=== PATIENT | male | born 1975 | race Caucasian/White ===

== ENCOUNTER 2020-03-24 17:55 | Emergency (ER) | payer MEDICAID ==
[2020-03-24] MEDS ORDERED: Adacel Vial IM ONE ×2 (18:10→18:13)
[2020-03-24] MEDS ORDERED: Hydromorphone 1 mg/ml Ampule ONE (18:13)
[2020-03-24] MEDS ORDERED: Hydromorphone 1 mg/ml Ampule IV ONE (18:18)
[2020-03-24] MEDS ORDERED: Sodium Chloride 0.9% 1000 ML 1,000 ML IV STA ×2 (18:22→18:25)
[2020-03-24] MEDS ORDERED: Sodium Chloride 0.9% 1000 ML 1,000 ML ONE ×2 (18:23→18:50)
--- NOTE | 2020-03-24 18:24 | ERPHSYRPT ---
- History of Present Illness Time Seen by Provider: 03/24/20 18:19 Source: patient, family, EMS Exam Limitations: no limitations Patient Subjective Stated Complaint: pt's circular kicked back and fell on pts right foot, pt has approx 1.5 cm laceration to top of right foot. ems states pt lost about a liter of blood. tournquit was placed on lower foot. dressing applied per ems . pt was given zofran and pain meds. Triage Nursing Assessment: pt arrived per ambulance. alert, resp easy, skin w/d/p. pt tournquit taken off and pt has steady oozing f blood, pressure dressing applied. eat 2 hours ago Physician History: pt dropped running circ saw on right foot and has bleeding stopped by tournequet. Pod Dr. Tiwari contacted adn will take to OR to explore and tie off bleeding vessel and treat wound. no other complaint of injury. Method of Injury: incised Occurred: just prior to arrival Quality: constant, stabbing Severity of Pain-Max: moderate Severity of Pain-Current: moderate Lower Extremities Pain: foot: right Modifying Factors: Improves With: nothing Associated Symptoms: other (bleeding) Allergies/Adverse Reactions: codeine Allergy (Verified 03/24/20 18:12) Penicillins Allergy (Verified 03/24/20 18:12) Home Medications: PARoxetine HCL [Paroxetine HCl] 20 mg DAILY 03/24/20 [History] Hx Tetanus, Diphtheria Vaccination/Date Given: No Hx Influenza Vaccination/Date Given: No Hx Pneumococcal Vaccination/Date Given: No Immunizations Up to Date: Yes Travel Risk - International Travel Have you traveled outside of the country in past 3 weeks: No - Coronavirus Screening Are you exhibiting any of the following symptoms?: No Close contact with a COVID-19 positive Pt in past 14-21 Days: No - Review of Systems Constitutional: No Fever, No Chills Eyes: No Symptoms Ears, Nose, & Throat: No Symptoms Respiratory: No Cough, No Dyspnea Cardiac: No Chest Pain, No Edema, No Syncope Abdominal/Gastrointestinal: No Abdominal Pain, No Nausea, No Vomiting, No Diar gregorio Genitourinary Symptoms: No Dysuria Musculoskeletal: Other (lac right foot), No Back Pain, No Neck Pain Skin: Other (lac), No Rash Neurological: No Dizziness, No Focal Weakness, No Sensory Changes Psychological: No Symptoms Endocrine: No Symptoms All Other Systems: Reviewed and Negative - Past Medical History Pertinent Past Medical History: Yes GI Medical History: GERD Psycho-Social History: Other Other Medical History: PTSD - Past Surgical History Past Surgical History: Yes Musculoskeletal: Orthopedic Surgery - Social History Smoking Status: Never smoker Exposure to second hand smoke: No Drug Use: none Patient Lives Alone: No - Nursing Vital Signs Nursing Vital Signs: Initial Vital Signs Temperature 97.7 F 03/24/20 17:58 Pulse Rate 78 03/24/20 17:58 Respiratory Rate 16 03/24/20 17:58 Blood Pressure 116/76 03/24/20 17:58 O2 Sat by Pulse Oximetry 97 03/24/20 17:58 Pain Scale Pain Intensity 4 - Physical Exam General Appearance: no apparent distress, alert Eyes, Ears, Nose, Throat Exam: moist mucous membranes Neck Exam: non-tender, supple Cardiovascular/Respiratory Exam: chest non-tender, normal breath sounds, regular rate/rhythm, no respiratory distress Gastrointestinal/Abdominal Exam: non-tender, guarding Back Exam: normal inspection, No vertebral tenderness Hips Exam: bilateral: non-tender, normal inspection, normal range of motion, no evidence of injury Legs Exam: bilateral leg: non-tender, normal inspection, normal range of motion, no evidence of injury Knees Exam: bilateral knee: non-tender, normal inspection, normal range of motion, no evidence of injury Ankle Exam: bilateral ankle: non-tender, normal inspection, normal range of motion, no evidence of injury Foot Exam: right foot: abrasions/lacerations, pain, left foot: non-tender, normal inspection, normal range of motion, no evidence of injury DTR - Lower Extremities Exam: knee (R): 2+, knee (L): 2+, ankle (R): 2+, ankle (L): 2+ Neuro/Tendon Exam: normal sensation, normal motor functions Mental Status Exam: alert, oriented x 3, cooperative Skin Exam: normal color, warm, dry, laceration SpO2 Interpretation: normal - Course Nursing assessment & vital signs reviewed: Yes - Radiology Exams Right Foot X-ray Interpretation: Reviewed by me, Other (no obvious fracture) Ordered Tests: Active Orders 24 hr Category Date Time Status Cotton Bag Clipper STAT Care 03/24/20 18:19 Active IV Insertion STAT Care 03/24/20 18:12 Active IV Insertion-2nd Peripheral STAT Care 03/24/20 18:12 Active FOOT (MINIMUM 3 VIEWS) Stat Exams 03/24/20 18:09 Taken CBC W DIFF Stat Lab 03/24/20 18:23 Completed CMP Stat Lab 03/24/20 18:23 Completed PROTIME WITH INR Stat Lab 03/24/20 18:23 Completed PTT Stat Lab 03/24/20 18:23 Completed Medication Summary Generic Name Dose Route Start Last Admin Trade Name Freq PRN Reason Stop Dose Admin Sodium Chloride 1,000 mls @ 999 mls/hr 03/24/20 18:22 03/24/20 18:24 Sodium Chloride 0.9% 1000 Ml IV 03/24/20 19:22 999 mls/hr .Q1H1M STA Administration Sodium Chloride 1,000 mls @ 999 mls/hr 03/24/20 18:25 Sodium Chloride 0.9% 1000 Ml IV 03/24/20 19:25 .Q1H1M STA Discontinued Medications Generic Name Dose Route Start Last Admin Trade Name Freq PRN Reason Stop Dose Admin Diphtheria/Tetanus/Acell Pertussis 0.5 ml 03/24/20 18:10 03/24/20 18:16 Adacel Vial IM 03/24/20 18:11 0.5 ml .ONCE ONE Administration Diphtheria/Tetanus/Acell Pertussis Confirm 03/24/20 18:13 Adacel Vial Administered 03/24/20 18:14 Dose 0.5 ml IM .STK-MED ONE Hydromorphone HCl Confirm 03/24/20 18:13 Hydromorphone 1 Mg/Ml Ampule Administered 03/24/20 18:14 Dose 1 mg .ROUTE .STK-MED ONE Hydromorphone HCl 1 mg 03/24/20 18:18 03/24/20 18:18 Hydromorphone 1 Mg/Ml Ampule IV 03/24/20 18:19 1 mg STAT ONE Administration Sodium Chloride Confirm 03/24/20 18:23 Sodium Chloride 0.9% 1000 Ml Administered 03/24/20 18:24 Dose 1,000 mls @ ud .ROUTE .STK-MED ONE Lab/Rad Data: Laboratory Result Diagrams 03/24/20 18:23 03/24/20 18:23 Laboratory Results 03/24/20 03/24/20 03/24/20 Range/Units 18:23 18:23 18:23 WBC 11.9 H (4.0-10.5) K/mm3 RBC 4.54 (4.1-5.6) M/mm3 Hgb 13.8 (12.5-18.0) gm/dl Hct 40.9 L (42-50) % MCV 90.1 (78-100) fl MCH 30.4 (26-32) pg MCHC 33.7 (32-36) g/dl RDW 12.4 (11.5-14.0) % Plt Count 218 (150-450) K/mm3 MPV 9.8 (7.5-11.0) fl Gran % 60.5 (36.0-66.0) % Eos # (Auto) 0.22 (0-0.5) Absolute Lymphs (auto) 3.61 (1.0-4.6) Absolute Monos (auto) 0.81 (0.0-1.3) Lymphocytes % 30.5 (24.0-44.0) % Monocytes % 6.8 (0.0-12.0) % Eosinophils % 1.9 (0.00-5.0) % Basophils % 0.3 (0.0-0.4) % Absolute Granulocytes 7.18 H (1.4-6.9) Basophils # 0.03 (0-0.4) PT 13.3 H (8.83-12.87) SECONDS INR 1.18 (0.8-3.0) APTT 25.6 (24.1-36.1) SECONDS Sodium 138 (137-145) mmol/L Potassium 3.1 L (3.5-5.1) mmol/L Chloride 107 (98-107) mmol/L Carbon Dioxide 25 (22-30) mmol/L Anion Gap 9.4 (5-15) MEQ/L BUN 13 (9-20) mg/dL Creatinine 1.11 (0.66-1.25) mg/dL Estimated GFR > 60.0 ML/MIN Glucose 99 (74-106) mg/dL Calcium 8.9 (8.4-10.2) mg/dL Total Bilirubin 0.50 (0.2-1.3) mg/dL AST 27 (17-59) U/L ALT 21 (0-50) U/L Alkaline Phosphatase 58 (38-126) U/L Serum Total Protein 6.8 (6.3-8.2) g/dL Albumin 4.0 (3.5-5.0) g/dL - Progress Progress: unchanged, re-examined Progress Note: 03/24/20 18:24 Dr. tiwari coming in to perform surg exploration in OR pt agrees. Discussed with DrJose: Other (Dr. Tiwari) Will see patient in: other (OR) Counseled pt/family regarding: diagnosis, need for follow-up, rad results - Departure Departure Disposition: Release to OR/DEC Clinical Impression: Laceration of right foot Condition: Good Critical Care Time: No Referrals: DOCTOR,NO FAMILY [Primary Care Provider] - Instructions: Laceration Repair With Stitches (DC), Surgical Wound (DC) Additional Instructions: released to OR, final dispo from Dr. Tiwari following surgery.
[2020-03-24 18:27] LABS: Absolute Neutrophil Ct (ANC) 7.18 (1.4-6.9); BASOPHIL % 0.3 % (0.0-0.4); Basophil (Absolute #) 0.03 (0-0.4); Eosinophil % 1.9 % (0.00-5.0); Eosinophil (Absolute #) 0.22 (0-0.5); Hematocrit 40.9 % (42-50); Hemoglobin 13.8 gm/dl (12.5-18.0); Lymphocyte (Absolute #) 3.61 (1.0-4.6); Lymphocytes % 30.5 % (24.0-44.0); Mean Cell Volume 90.1 fl (78-100); Mean Corpuscular Hemoglobin 30.4 pg (26-32); Mean Corpuscular Hgb Concent. 33.7 g/dl (32-36); Mean Platelet Volume 9.8 fl (7.5-11.0); Monocyte (Absolute #) 0.81 (0.0-1.3); Monocytes % 6.8 % (0.0-12.0); Neutrophil % 60.5 % (36.0-66.0); Platelet Count 218 K/mm3 (150-450); Red Blood Count 4.54 M/mm3 (4.1-5.6); Red Cell Distribution Width 12.4 % (11.5-14.0); White Blood Count 11.9 K/mm3 (4.0-10.5)
[2020-03-24 18:29] VITALS: O2SAT 98
[2020-03-24 18:30] VITALS: BP 109/71; PULSE 71
[2020-03-24 18:34] LABS: INR 1.18 (0.8-3.0); PROTIME 13.3 SECONDS (8.83-12.87)
[2020-03-24 18:38] LABS: ALKALINE PHOSPHATASE 58 U/L (38-126); ANION GAP 9.4 MEQ/L (5-15); BLOOD UREA NITROGEN 13 mg/dL (9-20); CHLORIDE 107 mmol/L (98-107); Calcium 8.9 mg/dL (8.4-10.2); Carbon Dioxide 25 mmol/L (22-30); Creatinine 1 1.11 mg/dL (0.66-1.25); EST GLOMERULAR FILTRATION RATE > 60.0 ML/MIN; Glucose 99 mg/dL (74-106); Potassium 3.1 mmol/L (3.5-5.1); SGOT/AST 27 U/L (17-59); SGPT/ALT 21 U/L (0-50); SODIUM 138 mmol/L (137-145); Total Protein 6.8 g/dL (6.3-8.2)
[2020-03-24 18:42] LABS: PTT 25.6 SECONDS (24.1-36.1)
[2020-03-24 19:03] LABS: ABO TYPING A; Antibody Screen NEGATIVE (NEGATIVE); RH TYPING POSITIVE
[2020-03-24] MEDS ORDERED: Ketamine HCl 50 MG/ML ONE (19:03)
[2020-03-24] MEDS ORDERED: Versed 2 MG/2 ML Injection ONE (19:03)
[2020-03-24] MEDS ORDERED: SUBLIMAZE 100 MCG/2 ML ONE (19:18)
[2020-03-24] MEDS ORDERED: Marcaine 0.5%/Epinephrine 10 ML ONE (19:56)
[2020-03-24] MEDS ORDERED: XYLOCAINE 1% HCL 20 ML MDV ONE (19:56)
--- NOTE | 2020-03-25 07:23 | XRAY ---
Indication: Laceration with saw. Comparison: None 3 nonweightbearing views right foot demonstrates overlying forefoot bandage material and tiny posterior heel spur. No other bony, articular, or soft tissue abnormalities.
--- NOTE | 2020-03-26 10:54 | PCM.CONS ---
Podiatry HPI - Consult Date of Consultation Date: 03/24/20 Reason for Consult: laceration due to circular saw right foot Consulting Provider: JANINE MONTALVO DPM - [facility] History of Present Illness: is a 44 year old maleWho presents to the emergency department with chief complaint of traumatic injury with a circular saw to the dorsal aspect of his right foot. 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 His family immediately called the ambulance which brought him to [facility] emergency department. In transport they were unable to stop the bleeding and they assess that he likely lost approximately 1 L of blood in the time. Patient states he was able to anticipate the circular saw dr minor therefore the laceration is not as big as it could be however there is a significant amount of arterial bleeding. He currently denies any constitutional symptoms of infection. He denies any other pedal complaints.. Medications & Allergies Home Medications: Home Medication List PARoxetine HCL [Paroxetine HCl] 20 mg DAILY 03/24/20 [History Confirmed 03/24/20] Allergies/Adverse Reactions: Allergies Allergy/AdvReac Type Severity Reaction Status Date / Time codeine Allergy Verified 03/24/20 18:12 Penicillins Allergy Verified 03/24/20 18:12 - Past Medical History Past Medical History: Yes Neurological History: No Pertinent History ENT History: No Pertinent History Cardiac History: No Pertinent History CARDIAC HISTORY: No Pertinent History Respiratory History: No Pertinent History Endocrine Medical History: No Pertinent History Musculoskelatal History: No Pertinent History GI Medical History: No Pertinent History, GERD History: No Pertinent History Pyscho-Social History: No Pertinent History, Other Male Reproductive Disorders: No Pertinent History Comment: PTSD - Past Surgical History Past Surgical History: Yes Neuro Surgical History: No Pertinent History Cardiac History: No Pertinent History Respiratory Surgery: No Pertinent History GI Surgical History: No Pertinent History Genitourinary Surgical Hx: No Pertinent History Musculskeletal Surgical Hx: No Pertinent History, Orthopedic Surgery Male Surgical History: No Pertinent History - Social History Smoking Status: Never smoker Exposure to second hand smoke: No Alcohol: None Drug Use: none Significant Family History: no pertinent family hx Physical Exam - Narrative Narrative Physical Exam: Podiatry Physical Exam Patient is a 44-year-old male. Lower Extremity Exam: Vascular: DP and PT pulses palpable b/l. CFT <5 seconds b/l. Skin temperature warm to cool from the proximal tibial tuberosity to distal toes b/l. Normal pedal hair growth b/l. Varicosities noted to lower legs b/l. No evidence of Lymphangitis, cellulitis or proximal streaking. No lymphadenopathy on palpation of the popliteal or inguinal lymph nodes.Potential vascular injury to the dorsalis pedis or the medial tarsal artery Neurological: Protective sensation intact Nerve distributions distal to laceration site is intact. Dermatological: Skin appears supple. There is a transverse laceration to the dorsal aspect of the right foot at the level of the navicular. There is a significant amount of sanguinous drainage indicating there may be arterial injury. Measurement of laceration is 2.5 cm. There is mild ecchymosis to the edges of the wound flap. Musculoskeletal: Deferred at this time due to pain Imaging:AP MO and LAT nonweightbearing of the Right lower extremity done demonstrating no osseous Fracture abnormalities. There is no increase in soft tissue density or any Indications of soft tissue emphysema. Lateral view demonstrates a laceration in correlation with the injury. No other abnormal findings. Results - Radiology Impressions Radiology Exams & Impressions: Radiology Procedures Category Date Time Status FOOT (MINIMUM 3 VIEWS) Stat Exams 03/24/20 18:09 Completed Assessment/Plan (1) Laceration of right foot Status: Acute Assessment & Plan: Initial patient assessment and evaluation. At this time due to the nature of the arterial injury and that it is unable to be explored at bedside in the emergency department I recommend going into the operating room in order to appropriately address this issue. Consent to read: "Debridement of soft tissue right foot with primary closure of laceration." No n.p.o. necessary CBC to assess hemoglobin and hematocrit secondary to blood loss Emergency room physician to assess for tetanus history. Patient will be discharged following the procedure with pain prescription and prophylaxis for infection. Code(s): S91.311A - LACERATION WITHOUT FOREIGN BODY, RIGHT FOOT, INIT ENCNTR
--- NOTE | 2020-03-26 11:11 | OP ---
Podiatry Procedure Note Procedure Date:: 03/24/20 Procedure Time: 19:30 Podiatry Procedure Note: Surgeon: Ricki Hurtado DPM Preoperative diagnosis: Laceration with arterial injury Post-operative diagnosis:[Same] Anesthesia: [MAC with local] Hemostasis: [None] Findings:[Arterial injury appeared to be to 1 of the tributary branches off of the dorsalis pedis likely the medial tarsal artery. This vessel was tied off utilizing a 2-0 Vicryl until hemostasis was achieved.] Estimated Blood Loss: [10 cc] Materials: [2-0 Vicryl 4-0 nylon] Injectibles: [5]ccs 1% lidocaine plain + [5] ccs 0.5 % marcaine plain. Total [10]ccs Specimens:[None] Complications:[None] Condition:[Stable] Procedure Details:[] Following satisfactory pre-op evaluation the patient was brought into the OR and placed on the OR table in the supine position. MAC sedation was administered by anesthesia. Following sedation a time out was then called identifying patient identity, procedure, operative location, date, allergies, antibiotics, and other pertinent information in regards to the surgery to which everyone agreed. At this time [10 cc of a one-to-one mixture of 0.5% Marcaine plain and 1% lid ocaine plain] was injected into the Area of the deep peroneal and superficial peroneal arteries and a partial ankle block type fashion.. The foot was then prepped and draped in the usual sterile manner and lowered onto the surgical field. Attention was then directed to the Right lower extremity where arterial blood was assessed coming out of the wound.'s at this time a dissecting scissor was utilized to free up the edges of the laceration in order to better assess the location of the damaged blood supply. This was found just distal to the laceration site where a curved hemostat was utilized to block off the blood vessel. At this time a 2-0 Vicryl was then utilized to tie off the blood vessel and a stick tie type fashion achieving hemostasis immediately. At this time I assessed the remainder of the laceration see if there are any bleeding vessels to which I found none. This time a bulb syringe was used to copiously irrigate the area with sterile saline. Visualization of the deep peroneal nerve was made which was uninjured. At this time a 15 blade was utilized to resect the nonviable tissue at the wound edges. At this time a 2-0 Vicryl was then utilized to coapt the incision centrally subcutaneously. The skin was then coapted using 4-0 nylon by Horizontal mattress type fashion. A dressing was applied consisting of , xeroform, 4x4 guaze, kerlix, and Betadine Thanh. The wayne ent tolerated anesthesia and the procedure well and was transported back to thePostoperative anesthesia care unit with VSS and VSI to the Right foot. Orders fore the following were placed: 1. Discharge patient when cleared from PACU 2. resume all pre-op medications, orders, and diet 3. Keep dressing CDI 4. PWB to right foot 5. Elevate right foot with pillow under leg 6. Postoperative infection prophylaxis of clindamycin and ciprofloxacin prescriptions written 7. Postoperative prescription of [place] 11/18/2024 written for postoperative pain. 8. Patient follow-up in clinic in 1 week's time
== END 2020-03-24 19:00 | disposition home or self-care (01) ==
LOC: ED 17:55
DX: S91.311A Laceration without foreign body, right foot, initial encounter (principal); W31.2XXA Contact with powered woodworking and forming machines, initial encounter
CPT/HCPCS: 11042; 12041; 36000; 36415; 73630; 80053; 85025; 85610; 85730; 86850; 86900; 86901; 90471; 90715; 93041; 96374; 99242; 99284; J1170; J2250; J3010

== ENCOUNTER 2021-11-24 21:07 | Emergency (ER) | payer MEDICAID, OTHER ==
--- NOTE | 2021-11-24 21:09 | ERPHSYRPT ---
- History of Present Illness Time Seen by Provider: 11/24/21 21:08 Source: patient Exam Limitations: no limitations Physician History: This is a 46-year-old white male who presents with 2-day history of left foot, specifically left first digit pain, redness and swelling. Patient has no history of gout. He has no recollection of injuring his foot. He has never had anything like this in the past. Method of Injury: unknown Occurred: yesterday Quality: constant, aching Severity of Pain-Max: moderate Severity of Pain-Current: moderate Lower Extremities Pain: foot: left, 1st toe: left Associated Symptoms: other (Hurts to bear weight) Allergies/Adverse Reactions: codeine Allergy (Verified 11/24/21 21:12) Penicillins Allergy (Verified 11/24/21 21:12) Home Medications: PARoxetine HCL [Paroxetine HCl] 20 mg DAILY 03/24/20 [History] Hx Tetanus, Diphtheria Vaccination/Date Given: No Hx Influenza Vaccination/Date Given: No Hx Pneumococcal Vaccination/Date Given: No Travel Risk - International Travel Have you traveled outside of the country in past 3 weeks: No - Coronavirus Screening Are you exhibiting any of the following symptoms?: No Close contact with a COVID-19 positive Pt in past 14-21 Days: No - Review of Systems Constitutional: No Symptoms Eyes: No Symptoms Ears, Nose, & Throat: No Symptoms Respiratory: No Symptoms Cardiac: No Symptoms Abdominal/Gastrointestinal: No Symptoms Genitourinary Symptoms: No Symptoms Musculoskeletal: Joint Redness, Joint Pain (Left first toe) Skin: No Symptoms Neurological: No Symptoms Psychological: No Symptoms Endocrine: No Symptoms Hematologic/Lymphatic: No Symptoms Immunological/Allergic: No Symptoms All Other Systems: Reviewed and Negative - Past Medical History Pertinent Past Medical History: Yes Neurological History: No Pertinent History ENT History: No Pertinent History Cardiac History: No Pertinent History Respiratory History: No Pertinent History Endocrine Medical History: No Pertinent History Musculoskeletal History: No Pertinent History GI Medical History: No Pertinent History, GERD History: No Pertinent History Psycho-Social History: No Pertinent History, Other Male Reproductive Disorders: No Pertinent History Other Medical History: PTSD - Past Surgical History Past Surgical History: Yes Neuro Surgical History: No Pertinent History Cardiac: No Pertinent History Respiratory: No Pertinent History Gastrointestinal: No Pertinent History Genitourinary: No Pertinent History Musculoskeletal: No Pertinent History, Orthopedic Surgery Male Surgical History: No Pertinent History - Social History Smoking Status: Never smoker Exposure to second hand smoke: No Drug Use: none Patient Lives Alone: No Significant Family History: no pertinent family hx - Nursing Vital Signs Nursing Vital Signs: Initial Vital Signs Temperature 98.4 F 11/24/21 21:13 Pulse Rate 77 11/24/21 21:13 Respiratory Rate 15 11/24/21 21:13 Blood Pressure 174/98 11/24/21 21:13 O2 Sat by Pulse Oximetry 99 11/24/21 21:13 Pain Scale Pain Intensity 8 - Physical Exam General Appearance: no apparent distress, alert, anxiety Eyes, Ears, Nose, Throat Exam: normal ENT inspection, moist mucous membranes Neck Exam: normal inspection, non-tender, supple, full range of motion Cardiovascular/Respiratory Exam: chest non-tender, no respiratory distress Gastrointestinal/Abdominal Exam: non-tender Back Exam: normal inspection, normal range of motion, No CVA tenderness, No vertebral tenderness Hips Exam: bilateral: non-tender, normal inspection, normal range of motion, no evidence of injury Legs Exam: bilateral leg: non-tender, normal inspection, normal range of motion, no evidence of injury Knees Exam: bilateral knee: non-tender, normal inspection, normal range of motion, no evidence of injury Ankle Exam: bilateral ankle: non-tender, normal inspection, normal range of motion, no evidence of injury Foot Exam: right foot: non-tender, normal inspection, normal range of motion, no evidence of injury, left foot: soft tissue tenderness (Left first toe), swelling (First toe) Neuro/Tendon Exam: normal sensation, normal motor functions, normal tendon functions, responds to pain, no evidence tendon injury Mental Status Exam: alert, oriented x 3, cooperative Skin Exam: normal color, warm, dry SpO2 Interpretation: normal O2 Delivery: Room Air - Course Nursing assessment & vital signs reviewed: Yes Ordered Tests: Active Orders 24 hr Category Date Time Status FOOT (MINIMUM 3 VIEWS) Stat Exams 11/24/21 21:21 Taken Uric Acid Stat Lab 11/24/21 21:50 Completed Lab/Rad Data: Laboratory Results 11/24/21 Range/Units 21:50 Uric Acid 7.2 (3.5-7.2) mg/dL - Progress Progress: unchanged, pain not gone completely, re-examined Progress Note: 11/24/21 22:05 X-ray left foot shows no acute fracture or dislocation. Counseled pt/family regarding: diagnosis, need for follow-up, rad results - Departure Departure Disposition: Home Clinical Impression: Toe pain, left Condition: Stable Critical Care Time: No Referrals: DOCTOR,NO FAMILY [Primary Care Provider] - Follow up/PCP as directed Additional Instructions: Take your medication as prescribed. Follow-up with your primary care physician for further management. Drink plenty of fluids. Prescriptions: Ondansetron ODT 4 MG [Zofran Odt 4 mg] 4 mg PO Q6H PRN PRN #10 tablet PRN Reason: Vomiting Oxycodone HCl/Acetaminophen [Percocet 5-325 mg Tablet] 1 each PO Q8H PRN PRN #6 tablet MDD 3 PRN Reason: Moderate To Severe Pain Prednisone 10 mg [Deltasone 10 mg] 10 mg PO TID #12 tablet
[2021-11-24] MEDS ORDERED: PERCOCET TABLET 5/325MG ONE (22:29)
[2021-11-24] MEDS ORDERED: DELTASONE 20 MG ONE (22:30)
[2021-11-24] MEDS: DELTASONE 20 MG PO ONE (22:31)
[2021-11-24] MEDS: PERCOCET TABLET 5/325MG PO STA (22:31)
[2021-11-24 22:51] VITALS: BP 134/84; PULSE 82; O2SAT 98
--- NOTE | 2021-11-26 01:23 | XRAY ---
Exam: 3 views of the left foot from 11/24/2021. Comparison: [None.] Indication: Left foot pain; injury. Findings: AP, oblique, and lateral radiographs of the left foot were obtained. I see no acute left foot fracture or dislocation. The base of the fifth metatarsal appears intact. The plantar arch is maintained. A small posterior calcaneal enthesophyte is seen. The joint spaces appear unremarkable. Impression: 1. No acute left foot fracture or dislocation is seen. 2. No other significant bone or articular abnormality of the left foot is seen. 3. Small posterior left calcaneal enthesophyte.
== END 2021-11-24 22:52 | disposition home or self-care (01) ==
LOC: ED 21:07
DX: M79.675 Pain in left toe(s) (principal); Z79.52 Long term (current) use of systemic steroids; Z79.891 Long term (current) use of opiate analgesic
CPT/HCPCS: 36415; 73630; 84550; 99284; A9270-GY